=== PATIENT | male | born 1980 | race African-American/Black ===

== ENCOUNTER 2021-02-23 14:14 | Emergency (ER) | payer SELFPAY ==
[~2021-02-23] VITALS: Ht 180.3 cm; Wt 79.8 kg
--- NOTE | 2021-02-23 14:32 | NUR ---
OSIEL, FOUND IN FRONT OF RALPHS, SLEEPING, TOOK UNKNOWN SUBSTANCE RESPONSIVE TO PAIN. THE PATIENT IS RESPONSIVE TO TACTILE STIMULI. THE PATIENT IS IN NO APPARENT DISTRESS. IN ROOM AIR, RESPIRATION REGULAR AND UNLABORED. ATTACHED TO THE MONITOR. THE PATIENT IS PROVIDED WITH WARM BLANKET FOR COMFORT. WILL CONTINUE TO MONITOR THE PATIENT.
--- NOTE | 2021-02-23 14:48 | NUR ---
THE PATIENT IS TAKEN TO CT
[2021-02-23 15:33] LABS: BASOPHILS # (AUTO) 0.1 K/uL (0.0-0.2); BASOPHILS % (AUTO) 0.9 % (0.0-2.0); EOSINOPHILS % (AUTO) 1.5 % (0.0-6.0); HEMATOCRIT 35 % (39-51); HEMOGLOBIN 11.9 g/dL (13.5-17.5); LYMPHOCYTES % (AUTO) 29.2 % (20.0-44.0); MEAN CORPUSCULAR HGB CONC 34 g/dl (31.0-36.0); MEAN CORPUSCULAR VOLUME 92 fL (80-96); MONOCYTES # (AUTO) 0.5 K/uL (0.1-1.30); MONOCYTES % (AUTO) 6.8 % (2.0-12.0); NEUTROPHILS # (AUTO) 4.2 K/uL (1.8-8.9); NEUTROPHILS % (AUTO) 61.6 % (43.0-81.0); PLATELET COUNT (AUTO) 256 K/uL (150-450); RED BLOOD CELL COUNT(AUTO) 3.83 MIL/uL (4.5-6.0); WHITE BLOOD COUNT (AUTO) 6.9 K/uL (4.3-11.0)
[2021-02-23 15:37] LABS: CALCIUM, SERUM 8.3 mg/dL (8.5-10.1); CARBON DIOXIDE 31 mmol/L (21-32); CHLORIDE 105 mmol/L (98-107); CREATININE 0.9 mg/dL (0.6-1.3); GLUCOSE 90 mg/dL (74-106); POTASSIUM 3.6 mmol/L (3.5-5.1); SODIUM SERUM 141 mmol/L (136-145); UREA NITROGEN, BLOOD 20 mg/dL (7-18)
[2021-02-23 15:54] LABS: ALANINE AMINOTRANSFERASE 23 U/L (12-78); ALBUMIN 3.1 g/dL (3.4-5.0); ALKALINE PHOSPHATASE 87 U/L (46-116); ASPARTATE AMINOTRANSFERASE 22 U/L (15-37); BILIRUBIN,DIRECT 0.2 mg/dL (0.0-0.2); BILIRUBIN,TOTAL 0.6 mg/dL (0.2-1.0); TOTAL PROTEIN, SERUM 6.7 g/dL (6.4-8.2)
--- NOTE | 2021-02-23 16:33 | NUR ---
Note undone in EDM - 02/23/21 at 1750 by ROBI [id number], FOUND IN FRONT OF RALPHS, SLEEPING, TOOK UNKNOWN SUBSTANCE RESPONSIVE TO PAIN. THE PATIENT IS RESPONSIVE TO TACTILE STIMULI. THE PATIENT IS IN NO APPARENT DISTRESS. IN ROOM AIR, RESPIRATION REGULAR AND UNLABORED. ATTACHED TO THE MONITOR. THE PATIENT IS PROVIDED WITH WARM BLANKET FOR COMFORT. WILL CONTINUE TO MONITOR THE PATIENT.
--- NOTE | 2021-02-23 16:45 | NUR ---
URINE COLLECTED AND SENT TO THE LAB
[2021-02-23 17:20] LABS: BILIRUBIN,URINE Negative (NEGATIVE); COLOR,URINE YELLOW (YELLOW); LEUKOCYTE ESTERASE ,URINE Negative (NEGATIVE); NITRITE, URINE Negative (NEGATIVE); PROTEIN,URINE Trace mg/dl (NEGATIVE); UGLUCOSE Negative (NEGATIVE)
--- NOTE | 2021-02-23 17:49 | NUR ---
THE PATIENT STILL SLEEPING. VITAL SIGNS STABLE. RESPONSIVE TO TACTTILE STIMULI. BREATHING EVEN AND UNLABORED. WILL CONTINUE TO MONITOR THE PATIENT.
[2021-02-23 17:59] LABS: BACTERIA,URINE None seen /HPF (None Seen); SQUAMOUS EPITHELIAL CELL,UR Few /HPF (None Seen); WBC,URINE 0-2 /HPF (0-3)
[2021-02-23 18:28] LABS: ALCOHOL, BLOOD < 3 mg/dL (0-0)
[2021-02-23 18:29] LABS: ACETAMINOPHEN < 0 ug/ml (10-30)
[2021-02-23 19:00] LABS: CREATINE KINASE, TOTAL 399 U/L (39-308); THYROID STIMULATING HORMONE 0.714 uIU/mL (0.358-3.74)
--- NOTE | 2021-02-23 19:30 | NUR ---
THE PATIENT SLEEPING. VSS. RESPONSIVE TO TACTTILE STIMULI. BREATHING EVEN AND UNLABORED. WILL CONTINUE TO MONITOR.
--- NOTE | 2021-02-23 21:46 | NUR ---
patient is awake refuses to provide name and date of , very upset, and cussing.
--- NOTE | 2021-02-24 00:10 | NUR ---
Patient is awake and alert to self, day, and place. pt ambulatory with a steady gait. pt requesting to be discharged home. Patient discharged to home in stable condition. Written and verbal after care instructions given. Patient verbalizes understanding of instruction.
[2021-02-24 06:35] VITALS: BP 118/80
== END 2021-02-24 00:10 | disposition home or self-care (01) ==
LOC: EDBD 14:20 → ER 14:20
DX: G93.40 Encephalopathy, unspecified (principal); F19.10 Other psychoactive substance abuse, uncomplicated; D64.9 Anemia, unspecified; Z59.0 Homelessness; Z87.81 Personal history of (healed) traumatic fracture; R94.31 Abnormal electrocardiogram [ECG] [EKG]; Z20.822 Contact with and (suspected) exposure to COVID-19
CPT/HCPCS: 36415; 70450; 71045; 72125; 80048; 80076; 80143; 80307; 80320; 81001; 82550; 82553; 82962; 83605; 84145; 84443; 84484; 85025; 85730; 87040 ×2; 87086; 93005; 99285; C9803; U0003; G0480